=== PATIENT | female | born 1990 | race African-American/Black ===

== ENCOUNTER 2022-10-02 12:15 | Inpatient (IN) | payer OTHER ==
[~2022-10-02] VITALS: Ht 170.2 cm; Wt 86.3 kg
[2022-10-02] VITALS (14 sets, daily range): BP systolic 105–134; BP diastolic 60–87
[2022-10-02] MEDS ORDERED: PRENTAB9 PO (12:30)
[2022-10-02] MEDS ORDERED: ASPI81CH33 PO (12:30)
[2022-10-02 13:50] LABS: HEMATOCRIT 29.5 % (36.0-47.0); HEMOGLOBIN 9.9 g/dl (12.0-15.5); MEAN CORPUSCULAR HEMOGLOBIN 33.8 pg (27.0-33.0); MEAN CORPUSCULAR HGB CONC 33.6 g/dl (32.0-36.5); MEAN CORPUSCULAR VOLUME 100.7 fl (80.0-96.0); PLATELET COUNT, AUTOMATED 161 10^3/uL (150-450); RED BLOOD COUNT 2.93 10^6/uL (4.00-5.40); WHITE BLOOD COUNT 5.6 10^3/uL (4.0-10.0)
[2022-10-02] MEDS ORDERED: LACTATED RINGER'S 1000 ML IV STA (14:11)
[2022-10-02] MEDS ORDERED: CARBOPROST TROMETHAMINE 250 MCG/ML AMP IM PRN (14:15)
[2022-10-02] MEDS ORDERED: TRANEXAMIC ACID INJection 1,000 MG in NS 100 ML IV PRN (14:15)
[2022-10-02] MEDS ORDERED: LR 1,000 ML IV SCH (14:15)
[2022-10-02] MEDS ORDERED: OXYTOCIN DRIP 30 UNITS in IV 1 EA IV PRN ×4 (14:15)
[2022-10-02] MEDS ORDERED: miSOPROStol 50MCG 1/2 TABLET SL ONE (15:15)
[2022-10-02] MEDS ORDERED: miSOPROStol 25MCG 1/4 TABLET PO SCH (21:15)
[2022-10-02] MEDS ORDERED: OXYTOCIN DRIP 30 UNITS in IV 1 EA IV SCH (21:30)
[2022-10-03] VITALS (12 sets, daily range): BP systolic 114–140; BP diastolic 73–92; O2SAT 98–100
[2022-10-03] MEDS ORDERED: LR 1,000 ML IV SCH (01:25)
[2022-10-03] MEDS ORDERED: METHYLERGONOVINE MALEATE 0.2MG/ML 1ML VIAL IM PRN (01:25)
[2022-10-03] MEDS ORDERED: RHOGAM 300MCG (1500IU) INJ IM SCH (01:25)
[2022-10-03] MEDS ORDERED: DOCUSATE SODIUM 100MG CAPSULE PO PRN (01:25)
[2022-10-03] MEDS ORDERED: ONDANSETRON 4MG 2ML VIAL IV PRN (01:25)
[2022-10-03] MEDS ORDERED: METOCLOPRAMIDE INJ 10MG/2ML VIAL IV PRN (01:25)
[2022-10-03] MEDS ORDERED: DIBUCAINE 1% OINTMENT 30GM TOP PRN (01:25)
[2022-10-03] MEDS ORDERED: OXYTOCIN DRIP 30 UNITS in IV 1 EA IV SCH (01:25)
[2022-10-03] MEDS: ACETAMINOPHEN 500 MG TAB PO SCH ×4 (01:35→19:25)
[2022-10-03] MEDS: IBUPROFEN 800 MG TAB PO SCH ×3 (03:30→19:58)
[2022-10-03] MEDS: PRENATAL VITAMINS CHEWABLE TABLET PO SCH (07:48)
[2022-10-03] MEDS ORDERED: PRENATAL VITAMINS CHEWABLE TABLET PO SCH (09:00)
[2022-10-04] MEDS: ACETAMINOPHEN 500 MG TAB PO SCH ×2 (01:25→07:01)
[2022-10-04] MEDS: IBUPROFEN 800 MG TAB PO SCH (03:00)
[2022-10-04 06:00] VITALS: BP 125/86; O2SAT 99
[2022-10-04 07:29] LABS: HEMATOCRIT 28.9 % (36.0-47.0); HEMOGLOBIN 9.2 g/dl (12.0-15.5); MEAN CORPUSCULAR HEMOGLOBIN 32.2 pg (27.0-33.0); MEAN CORPUSCULAR HGB CONC 31.8 g/dl (32.0-36.5); PLATELET COUNT, AUTOMATED 149 10^3/uL (150-450); RED BLOOD COUNT 2.86 10^6/uL (4.00-5.40); WHITE BLOOD COUNT 5.6 10^3/uL (4.0-10.0)
[2022-10-04] MEDS: PRENATAL VITAMINS CHEWABLE TABLET PO SCH (09:00)
[2022-10-05] MEDS ORDERED: MEASLES,MUMPS,RUBELLA VACCINE INJ (MMR-II) SC.IMMUN ONE (09:00)
== END 2022-10-04 10:41 | disposition home or self-care (01) | DRG 807 ==
LOC: M LDI 12:15 → M OBS 10-03 03:10
PROVIDERS: ADMIT Advanced Practice Midwife; ATTEND Advanced Practice Midwife
PROC: 3E033VJ Introduction of Other Hormone into Peripheral Vein, Percutaneous Approach (ICD-10-PCS; 2022-10-02)
PROC: 3E0DXGC Introduction of Other Therapeutic Substance into Mouth and Pharynx, External Approach (ICD-10-PCS; 2022-10-02)
PROC: 10E0XZZ Delivery of Products of Conception, External Approach (ICD-10-PCS; principal; 2022-10-03)
DX: O10.92 Unspecified pre-existing hypertension complicating childbirth (principal); Z37.0 Single live birth; Z3A.38 38 weeks gestation of pregnancy

== ENCOUNTER 2023-02-01 02:06 | Emergency (ER) | payer OTHER ==
[~2023-02-01] VITALS: Ht 170.2 cm; Wt 74.3 kg
[~2023-02-01 02:06] MED LIST: ASPI81CH33 PO; PRENTAB9 PO
[2023-02-01] MEDS ORDERED: AMLO1TAB24 (02:15)
[2023-02-01] MEDS ORDERED: VITA100093 (02:15)
[2023-02-01 03:05] LABS: HEMATOCRIT 38.4 % (36.0-47.0); HEMOGLOBIN 12.5 g/dl (12.0-15.5); MEAN CORPUSCULAR HEMOGLOBIN 30.8 pg (27.0-33.0); MEAN CORPUSCULAR HGB CONC 32.6 g/dl (32.0-36.5); MEAN CORPUSCULAR VOLUME 94.6 fl (80.0-96.0); PLATELET COUNT, AUTOMATED 164 10^3/uL (150-450); RED BLOOD COUNT 4.06 10^6/uL (4.00-5.40); WHITE BLOOD COUNT 3.6 10^3/uL (4.0-10.0)
[2023-02-01 03:28] LABS: LIPASE 27 U/L (12-53)
[2023-02-01 03:30] LABS: ALBUMIN 3.8 G/DL (3.2-5.2); ALKALINE PHOSPHATASE 61 U/L (46-116); ALT/SGPT 13 U/L (7.0-40); AST/SGOT 13 U/L (<34); BILIRUBIN,DIRECT 0.1 MG/DL (<0.4); BILIRUBIN,TOTAL 0.4 MG/DL (0.3-1.2); CK-MB VALUE MASS < 1.0 NG/ML (<3.6); TOTAL PROTEIN 7.6 G/DL (5.7-8.2)
[2023-02-01 03:40] LABS: CPK CREATINE PHOSPHOKINASE 88 U/L (34-145); MB/CK RELATIVE INDEX 1.13 (< OR =4)
[2023-02-01 03:44] LABS: ATYPICAL LYMPH 10 % (0-5); EOSINOPHILS 1 % (0-3); LYMPHOCYTES 26 % (16-44); MONOCYTES 11 % (0-5); NEUTROPHILS 52 % (28-66)
[2023-02-01 03:45] LABS: PLATELET ESTIMATE NORMAL (NORMAL)
[2023-02-01] MEDS ORDERED: amLODIPine 5 MG TAB PO ONE (04:35)
[2023-02-01] MEDS ORDERED: KETOROLAC 30 MG/ML 1ML VIAL IV ONE (04:35)
[2023-02-01 04:38] VITALS: BP 161/107
[2023-02-01 06:51] LABS: BLOOD UREA NITROGEN 16 MG/DL (9-23); CREATININE FOR GFR 0.64 MG/DL (0.55-1.30); GLOMERULAR FILTRATION RATE > 60.0 (>60)
[2023-02-01 07:12] LABS: CK-MB VALUE MASS < 1.0 NG/ML (<3.6)
[2023-02-01 07:13] LABS: CPK CREATINE PHOSPHOKINASE 93 U/L (34-145); MB/CK RELATIVE INDEX 1.07 (< OR =4)
[2023-02-01] MEDS ORDERED: ISOVUE-370 76% 100ML VIAL As Ordered ONE (07:19)
[2023-02-01] MEDS ORDERED: CHLO125TA PO (08:31)
[2023-02-01] MEDS ORDERED: SPIR-10 PO (08:31)
[2023-02-01 08:39] VITALS: BP 149/96; TEMP 98.2; O2SAT 100
== END 2023-02-01 08:49 | disposition home or self-care (01) ==
LOC: M ED 02:06
DX: R07.9 Chest pain, unspecified (principal); I10 Essential (primary) hypertension; Z79.811 Long term (current) use of aromatase inhibitors; Z79.899 Other long term (current) drug therapy
CPT/HCPCS: 71045; 71275; 80047; 80076; 82550; 82553; 82565; 83690; 84484; 84520; 84702; 85025; 93005; 93041; 94760; 96374; 99285; J1885; Q9967

== ENCOUNTER → 2023-09-01 | Outpatient (REF) ==
[~2023-09-01] MED LIST changes: +AMLO1TAB24 PO; +CHLO125TA PO; +LISI10TA22 PO; +LISI5TAB11; +SPIR-10 PO; +VITA100093 PO
== END ==
LOC: M PLAIMG 10:03
PROVIDERS: ATTEND Internal Medicine
DX: R52 Pain, unspecified (principal)

== ENCOUNTER → 2023-10-07 | Outpatient (CLI) | payer OTHER | LOC: M PLARAD 13:36 | PROVIDERS: ATTEND Nurse Practitioner Family | DX: M51.36 Other intervertebral disc degeneration, lumbar region (principal); M48.061 Spinal stenosis, lumbar region without neurogenic claudication ==

== ENCOUNTER 2023-11-03 22:36 | Emergency (ER) | payer OTHER ==
[~2023-11-03] VITALS: Ht 170.2 cm; Wt 73.7 kg
[2023-11-03 23:27] LABS: BASO % 0.5 % (0.0-1.0); EOS % 0.7 % (0.0-3.0); HEMATOCRIT 37.5 % (36.0-47.0); HEMOGLOBIN 12.4 g/dl (12.0-15.5); LYMPH # 2.2 10^3/uL (1.5-5.0); LYMPH % 52.2 % (24.0-44.0); MEAN CORPUSCULAR HEMOGLOBIN 31.6 pg (27.0-33.0); MEAN CORPUSCULAR HGB CONC 33.1 g/dl (32.0-36.5); MEAN CORPUSCULAR VOLUME 95.4 fl (80.0-96.0); MONO # 0.3 10^3/uL (0.0-0.8); MONO % 6.7 % (2.0-8.0); NEUTROPHILS # 1.7 10^3/uL (1.5-8.5); NEUTROPHILS % 39.9 % (36.0-66.0); PLATELET COUNT, AUTOMATED 163 10^3/uL (150-450); RED BLOOD COUNT 3.93 10^6/uL (4.00-5.40); WHITE BLOOD COUNT 4.2 10^3/uL (4.0-10.0)
[2023-11-03 23:49] LABS: LIPASE 38 U/L (12-53)
[2023-11-03 23:51] LABS: ALBUMIN 3.9 G/DL (3.2-5.2); ALKALINE PHOSPHATASE 41 U/L (46-116); ALT/SGPT 24 U/L (7.0-40); AST/SGOT 17 U/L (<34); BILIRUBIN,DIRECT < 0.1 MG/DL (<0.4); BILIRUBIN,TOTAL 0.3 MG/DL (0.3-1.2); BLOOD UREA NITROGEN 16 MG/DL (9-23); CARBON DIOXIDE LEVEL 30 MMOL/L (20-31); CHLORIDE LEVEL 105 MMOL/L (98-107); CK-MB VALUE MASS < 1.0 NG/ML (<3.6); CREATININE FOR GFR 0.81 MG/DL (0.55-1.30); GLOMERULAR FILTRATION RATE > 60.0 (>60); GLUCOSE, FASTING 110 MG/DL (60-100); POTASSIUM SERUM 3.4 MMOL/L (3.5-5.1); SODIUM LEVEL 138 MMOL/L (136-145); TOTAL PROTEIN 7.8 G/DL (5.7-8.2)
[2023-11-03 23:56] LABS: CPK CREATINE PHOSPHOKINASE 175 U/L (34-145); MB/CK RELATIVE INDEX 0.57 (< OR =4)
[2023-11-04 00:01] VITALS: BP 147/143
[2023-11-04] MEDS: amLODIPine 5 MG TAB PO ONE (00:01)
[2023-11-04 00:45] VITALS: BP 139/92; TEMP 98.1; O2SAT 100
[2023-11-04] MEDS ORDERED: AMLO1TAB24 PO (01:05)
== END 2023-11-04 01:17 | disposition home or self-care (01) ==
LOC: M ED 22:36
DX: I10 Essential (primary) hypertension (principal); I45.10 Unspecified right bundle-branch block; G43.909 Migraine, unspecified, not intractable, without status migrainosus; Z79.811 Long term (current) use of aromatase inhibitors; Z79.899 Other long term (current) drug therapy

== ENCOUNTER → 2023-11-30 | Outpatient (CLI) | payer OTHER | LOC: M WHC 11:50 | PROVIDERS: ATTEND Obstetrics & Gynecology Gynecology | DX: D27.0 Benign neoplasm of right ovary (principal) ==

== ENCOUNTER → 2024-03-27 | Outpatient (REF) | LOC: M PLAIMG 10:06 | PROVIDERS: ATTEND Internal Medicine | DX: M54.50 Low back pain, unspecified (principal); M54.6 Pain in thoracic spine; M47.814 Spondylosis without myelopathy or radiculopathy, thoracic region; M47.816 Spondylosis without myelopathy or radiculopathy, lumbar region ==

== ENCOUNTER 2025-01-05 06:46 | Outpatient (CLI) | payer OTHER ==
[~2025-01-05] VITALS: Ht 170.2 cm; Wt 70.9 kg
[2025-01-05 07:00] VITALS: BP 119/88; O2SAT 100
[2025-01-05] MEDS: COSYNTROPIN 0.25 MG/ML 1ML VIAL IV ONE (07:48)
[2025-01-05 09:00] VITALS: BP 132/84; O2SAT 100
== END 2025-01-05 09:00 ==
LOC: M INFU 06:46
PROVIDERS: ATTEND Student in an Organized Health Care Education/Training Program
DX: R89.1 Abnormal level of hormones in specimens from other organs, systems and tissues (principal)
CPT/HCPCS: 82024; 82533; 96374; J0834